=== PATIENT | male | born 1940 | race Caucasian/White ===

== ENCOUNTER 2020-12-06 10:02 | Outpatient (REF) | payer MEDICARE, SELFPAY ==
--- NOTE | 2020-12-06 | US_ITS ---
EXAMINATION: US EXTRACRANIAL CAROTID DUPLEX, BILATERAL CLINICAL INFORMATION: This is an 80-year-old male with carotid artery stenosis. Atherosclerotic disease. COMPARISON: Comparison is made to a previous study dated 11/24/2019 which demonstrated bilateral 0-49% internal carotid artery stenoses. TECHNIQUE: Real-time ultrasound and Doppler techniques (integrating B-mode 2-D vascular images, Doppler spectral analysis and color-flow Doppler imaging) were utilized to interrogate the extracranial carotid arteries, the vertebral arteries and proximal subclavian arteries bilaterally. The degree of stenosis is determined by criteria similar to NASCET. FINDINGS: Right Side: 1. There is minimal atherosclerotic plaque seen in the bifurcation/proximal ICA region. 2. The common carotid artery PSV proximally is 81 cm/s and distally 69 cm/s. 3. The proximal internal carotid artery velocities are 53 cm/s systolic and 11 cm/s diastolic. 4. The proximal external carotid artery PSV is 77 cm/s. 5. The vertebral artery shows antegrade flow. 6. The subclavian artery waveforms are normal. Left Side: 1. There is intimal atherosclerotic plaque seen in the bifurcation/proximal ICA region. 2. The common carotid artery PSV proximally is 126 cm/s and distally 81 cm/s. 3. The proximal internal carotid artery velocities are 50 cm/s systolic and 11 cm/s diastolic. 4. The proximal external carotid artery PSV is 130 cm/s. 5. The vertebral artery shows antegrade flow. 6. The subclavian artery waveforms are normal. US/US carotid duplex BI IMPRESSION: 1. RIGHT: Minimal, non-hemodynamically significant stenosis of the proximal right internal carotid artery corresponding to a 0-49% stenosis by velocity criteria. 2. LEFT: Minimal, non-hemodynamically significant stenosis of the proximal left internal carotid artery corresponding to a 0-49% stenosis by velocity criteria. 3. There is no change in the category severity of disease when compared to the previous study dated 11/24/2019.. 4. Incidental note is made of enlargement and heterogeneity throughout the thyroid gland. This would be best evaluated with a dedicated thyroid ultrasound.
== END 2020-12-06 10:03 | disposition home or self-care (01) ==
LOC: HO.US 10:02
PROVIDERS: PCP Internal Medicine; Visit Provider Surgery Vascular Surgery
DX: I65.23 Occlusion and stenosis of bilateral carotid arteries (principal)
CPT/HCPCS: 93880

== ENCOUNTER → 2022-08-07 08:11 | Outpatient (BNVA) | payer MEDICARE, SELFPAY | PROVIDERS: PCP Nurse Practitioner Family; Referring Provider Nurse Practitioner Family; Visit Provider Internal Medicine | DX: R42 Dizziness and giddiness (principal); I25.10 Atherosclerotic heart disease of native coronary artery without angina pectoris; I49.9 Cardiac arrhythmia, unspecified; I10 Essential (primary) hypertension; Z98.890 Other specified postprocedural states | CPT/HCPCS: 93005; 99202 ==

== ENCOUNTER 2022-08-21 07:58 | Outpatient (REF) | payer MEDICARE, SELFPAY ==
--- NOTE | ~2022-08-21 | US_ITS ---
EXAMINATION: US EXTRACRANIAL CAROTID DUPLEX, BILATERAL CLINICAL INFORMATION: Stroke COMPARISON: 12/06/2020 TECHNIQUE: Real-time ultrasound and Doppler techniques (integrating B-mode 2-D vascular images, Doppler spectral analysis and color-flow Doppler imaging) were utilized to interrogate the extracranial carotid arteries, the vertebral arteries and proximal subclavian arteries bilaterally. The degree of stenosis is determined by criteria similar to NASCET. FINDINGS: Right Side: 1. Postsurgical changes consistent with prior endarterectomy. There is minimal atherosclerotic plaque seen in the bifurcation/proximal ICA region. 2. The common carotid artery PSV proximally is 81.5 cm/s and distally 70.4 cm/s. 3. The proximal internal carotid artery velocities are 58.5 cm/s systolic and 11.4 cm/s diastolic. 4. The proximal external carotid artery PSV is 70.3 cm/s. 5. The vertebral artery shows antegrade flow. 6. The subclavian artery waveforms are normal. Left Side: 1. There is mild calcified atherosclerotic plaque seen in the bifurcation/proximal ICA region. 2. The common carotid artery PSV proximally is 128 cm/s and distally 80.9 cm/s. 3. The proximal internal carotid artery velocities are 49.5 cm/s systolic and 14.9 cm/s diastolic. 4. The proximal external carotid artery PSV is 113 cm/s. 5. The vertebral artery shows antegrade flow. 6. The subclavian artery waveforms are normal. 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 RIGHT: Minimal, non-hemodynamically significant stenosis of the proximal right internal carotid artery corresponding to a 0-49% stenosis by velocity criteria. Status post prior carotid endarterectomy without recurrent stenosis 2. LEFT: Minimal, non-hemodynamically significant stenosis of the proximal left internal carotid artery corresponding to a 0-49% stenosis by velocity criteria. 3. There is no change in the category severity of disease when compared to the previous study dated 12/06/2020.
== END 2022-08-21 07:59 | disposition home or self-care (01) ==
LOC: HO.HMGCX 07:58
PROVIDERS: Visit Provider Surgery Vascular Surgery
DX: I63.233 Cerebral infarction due to unspecified occlusion or stenosis of bilateral carotid arteries (principal)
CPT/HCPCS: 93880

== ENCOUNTER → 2022-08-30 08:00 | Outpatient (REF) | payer MEDICARE, SELFPAY ==
--- NOTE | 2022-08-30 08:04 | CA_ITS ---
Transthoracic Echocardiogram Patient (Last, First, Middle): Dashawn Ceron, Gender: Male Date of : 1940 Age: 82 Procedure Date: 08/30/2022 Procedure Type: Transthoracic Echocardiogram Location: OP Height: 175.26 cm Weight: 68.04 kg BSA: 1.83 m2 Heart Rate: bpm BP: 150 / 76 mmHg Garage Door Installer: VASYL Referring MD: Andrew Toure MD Veterinary Medicine Scientist: Leo Dukes MD Symptoms: I25.10 - Atherosclerotic heart disease of [place] coronary artery without... Study Quality: Adequate ECG Rhythm: Sinus Conclusions: - 1. Normal LV systolic function with impaired relaxation filling pattern. 2. Calcific aortic valve changes noted with mild aortic regurgitation and early mild aortic stenosis 3. Normal RV systolic pressure 4. No pericardial effusion Findings Left Ventricle Normal left ventricular size, thickness, and systolic function. The visually estimated ejection fraction is between 55-60%. Spectral Doppler is indicative of an impaired relaxation filling pattern. E/E prime ratio is between 8 and 15 consistent with indeterminate filling pressures. Right Ventricle Normal right ventricular cavity size and systolic function. Atria The left atrium is mildly dilated. Interatrial shunt cannot be excluded. The right atrium is normal in size. Aortic Valve There is mild calcification of the aortic valve. There is mild thickening of the aortic valve. There is mild aortic valve stenosis. The mean gradient is 6 mmHg. The aortic valve area is 1.92 cm2. There is mild to moderate aortic valve regurgitation. Mitral Valve There is mild anterior and posterior mitral leaflet thickening. There is mild mitral annular calcification. There is trace mitral valve regurgitation. There is no mitral valve stenosis. Pulmonic Valve The pulmonic valve was not well visualized. Tricuspid Valve Likely normal tricuspid valve structure and function. There is trace tricuspid valve regurgitation. The right ventricular systolic pressure is normal. The right ventricular systolic pressure is 23 mmHg. Normal right atrial pressure. There is no evidence of pulmonary hypertension. Great Vessels All visible segments of the aorta are normal in size. The pulmonary artery was not well visualized. Small plaque is seen in the ascending aorta. Venous The inferior vena cava is normal in size and collapses greater than 50% with inspiration. Pericardium/Pleural There is no evidence of pericardial effusion. Prior Study Comparison Changes noted compared to prior study dated: 03/12/2018. RV systolic pressure is not elevated Measurements 2D Linear Measurements IVSd: 1.09 0.6-0.9/0.6-1.0 cm LVIDd: 4.08 3.9-5.3/4.2-5.9 cm LVIDd Index: 2.23 2.4-3.2/2.2-3.1 cm/m2 LVIDs: 2.67 2.0-3.6 cm LVPWd: 1.11 0.7-1.1 cm LA Diam: 3.70 2.7-3.8/3.0-4.0 cm LAIDs Index: 2.02 1.5-2.3 cm/m2 LV Mass: 186.95 67-162/88-224 g LV Mass Index: 102.16 43-95/49-115 g/m2 LVOT Diam: 2.30 3.0+(-)1.3 cm 2D Systolic Function EF 4C: 56.70 >55% EF 2C: 60.90 >55% EF BiP: 59.20 >55% Mitral Valve MV Pk E: 0.62 MV PK A: 0.72 MV Decel Time: 344.00 E/A: 0.90 E'Lateral: 6.42 E'Medial: 5.87 E/E' Med: 10.50 E/E' Lat: 9.60 PHT: 101.00 MVA PHT: 2.18 Decel Stearns: 1.79 Aortic Valve AoV Pk Luis E: 1.75 AoV Mn Luis E: 1.16 AoV VTI: 0.39 AoV Pk Grad: 12.00 Aov Mn Grad: 6.00 JESUS Cont.VTI: 1.92 AI Pk Luis E: 3.96 AI Stearns: 1.56 LVOT LVOT Pk Luis E: 0.78 LVOT Mn Luis E: 0.47 LVOT VTI: 0.18 LVOT Pk Grad: 2.00 LVOT Mn Grad: 1.00 LVOT Diam: 2.30 LVOT Area: 4.15 Diastolic Function MV Pk E: 0.62 MV Pk A: 0.72 E/A: 0.90 E'Medial: 5.87 E/E' Med: 10.50 E' Laterial: 6.42 E/E' Lat: 9.60 Right Ventricle TAPSE (mm): 23.20 TVS' Luis E: 11.90 Tricuspid Valve TR Pk Luis E: 2.24 TR Pk Grad: 20.00 RA Press: 3.00 RVSP: 23.00 Great Vessels Aorta Sinus of Valsalva: 3.90 2.0-3.[address] [place]: 3.14 1.7-3.4 cm Ao Asc: 3.30 2.1-3.4 cm Updated in Other Vendor System with Status of Final eLo Dukes MD electronically signed on 08/31/2022 12:29:10 PM with status of Final
--- NOTE | 2022-08-30 08:04 | HM_ITS ---
Conclusion: 1. Patient was monitored for total period of 3 days and 23 hours 2. Baseline rhythm was normal sinus rhythm with average heart of 65 beats per minute with slowest heart rate of 40 beats per minute. 3. No significant pauses noted 4. Frequent sinus bradycardia with heart rate below 60 beats per minute 38% of the time 5. Total of 1979 PACs accounting for 0.56% of total beats account for occasional PACs 6. Very short burst of SVT without any episodes of sustained SVT. 7. Total of 1175 PVCs accounting for 0.33% of total beats accounting for occasional PVCs 8. One patient reported event correlated with sinus bradycardia with no symptoms reported MTDD
== END ==
LOC: HO.CARD 08:00
PROVIDERS: Visit Provider Internal Medicine
DX: I25.10 Atherosclerotic heart disease of native coronary artery without angina pectoris (principal); I49.9 Cardiac arrhythmia, unspecified; R42 Dizziness and giddiness
CPT/HCPCS: 93242; 93306

== ENCOUNTER → 2022-09-25 13:37 | Outpatient (BNVA) | payer MEDICARE, SELFPAY | PROVIDERS: PCP Nurse Practitioner Family; Referring Provider Nurse Practitioner Family; Visit Provider Nurse Practitioner Family | DX: R42 Dizziness and giddiness (principal); I10 Essential (primary) hypertension; I49.1 Atrial premature depolarization; Z98.890 Other specified postprocedural states | CPT/HCPCS: 99212 ==

== ENCOUNTER → 2023-04-30 10:08 | Outpatient (BNVA) | payer MEDICARE, SELFPAY | PROVIDERS: PCP Nurse Practitioner Family; Visit Provider Internal Medicine | DX: R42 Dizziness and giddiness (principal); I10 Essential (primary) hypertension; Z98.890 Other specified postprocedural states | CPT/HCPCS: 93005; 99212 ==